=== PATIENT | male | born 1995 | race Caucasian/White ===

== ENCOUNTER 2017-02-17 21:54 | Emergency (ER) | payer OTHER ==
[2017-02-17 22:27] VITALS: O2SAT 95
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
[2017-02-17 23:23] VITALS: BP 154/65; PULSE 98; RESP 18; TEMP 99.5
== END 2017-02-17 23:20 | disposition home or self-care (01) ==
LOC: CED 21:54
PROC: 0HQKXZZ Repair Right Lower Leg Skin, External Approach (ICD-10-PCS; principal; 2017-02-17)
DX: S81.811A Laceration without foreign body, right lower leg, initial encounter (principal); Y93.55 Activity, bike riding; V11.0XXA Pedal cycle driver injured in collision with other pedal cycle in nontraffic accident, initial encounter
CPT/HCPCS: 12002-PO; 99203-PO; G0463-PO